=== PATIENT | female | born 1935 | race Caucasian/White ===

== ENCOUNTER 2016-09-08 20:50 | Inpatient (IN) | payer OTHER ==
[~2016-09-08] VITALS: Ht 147.3 cm; Wt 79.6 kg
[~2016-09-08 20:50] MED LIST: ATORVASTATIN CA20 MG PO; KEFLEX500 MG PO; LEVOTHYROXINE75 MCG PO; LISINOPRIL-HCT1 EAC3 PO; NAPROSYN250 MG PO; RALOXIFENE HCL60 MG PO; TYLENOL REGULA325 MG PO
[2016-09-08 21:56] LABS: EOSINOPHIL (%) 0.5 % (0-5); HEMATOCRIT 39.5 % (36.0-46.0); IMMATURE GRANULOCYTE (%) 0.2 % (0.0-0.7); INSTRUMENT ABS NEUTROPHIL CT 3.2 K/uL; LYMPHOCYTE COUNT 0.6 K/uL (1.0-2.8); MCH 29.1 PG (29.0-34.0); MCHC 30.4 G/DL (30.0-36.0); MCV 95.9 FL (83-99); MEAN PLAT.VOLUME 9.3 uM^3 (9.5-12.4); MONOCYTE (%) 12.1 % (3-12); MONOCYTE COUNT 0.5 K/uL (0-0.8); NEUTROPHIL (%) 72.6 % (45-76); NEUTROPHIL COUNT 3.2 K/uL (1.8-6.4); PLATELET COUNT 168 K/uL (156-360); RBC DIS.WIDTH-SD 56.9 % (39-53); RED BLOOD COUNT 4.12 M/uL (3.80-5.20); WHITE BLOOD COUNT 4.4 K/uL (4.1-10.2)
[2016-09-08 22:07] LABS: CHLORIDE 103 mEq/L (99-109); POTASSIUM 4.7 mEq/L (3.7-5.4); SODIUM 139 mEq/L (136-147)
[2016-09-08 22:09] LABS: GLUCOSE 174 mg/dL (70-99)
[2016-09-08 22:10] LABS: ANION GAP 9 MEQ/L (2-14)
[2016-09-08 22:11] LABS: TOTAL BILIRUBIN 0.3 mg/dL (0.0-1.0)
[2016-09-08 22:12] LABS: ALKALINE PHOSPHATASE 46 IU/L (3-129)
[2016-09-08 22:13] LABS: GFR ESTIMATE (CALCULATED) 42 mL/min/
[2016-09-08 22:14] LABS: UREA NITROGEN (BUN) 48 mg/dL (9-23)
[2016-09-08 22:18] LABS: TROP-I INTERPRETATION NEGATIVE; TROPONIN-I 0.01 ng/mL (0.0-0.30)
[2016-09-08] MEDS ORDERED: AUGMENTIN875 MG PO (22:46)
[2016-09-08] MEDS ORDERED: PROVENTIL,2.5 MG/3 M IH (22:46)
[2016-09-08] MEDS ORDERED: BUSPIRONE HCL10 MG PO (22:47)
[2016-09-08] MEDS ORDERED: DONEPEZIL HCL5 MG PO (22:47)
[2016-09-08] MEDS ORDERED: CALCIUM 500 +1 EACH PO (22:47)
[2016-09-08] MEDS ORDERED: SERTRALINE HCL50 MG PO (22:47)
[2016-09-08] MEDS ORDERED: LO-DOSE ASPIRIN81 M2 PO (22:47)
[2016-09-08 22:58] LABS: INFLUENZA A VIRAL ANTIGEN NEGATIVE; INFLUENZA B VIRAL ANTIGEN NEGATIVE
[2016-09-09 03:54] VITALS: BP 105/52
[2016-09-09 08:19] VITALS: BP 139/65
[2016-09-09 12:16] VITALS: BP 140/76
[2016-09-09 16:00] VITALS: BP 134/70
[2016-09-09 20:00] VITALS: BP 130/57
[2016-09-10] VITALS (8 sets, daily range): BP systolic 124–165; BP diastolic 58–92
[2016-09-10 07:03] LABS: EOSINOPHIL (%) 0.9 % (0-5); HEMATOCRIT 35.7 % (36.0-46.0); IMMATURE GRANULOCYTE (%) 0.7 % (0.0-0.7); INSTRUMENT ABS NEUTROPHIL CT 2.5 K/uL; LYMPHOCYTE COUNT 1.2 K/uL (1.0-2.8); MCH 28.3 PG (29.0-34.0); MCHC 29.7 G/DL (30.0-36.0); MCV 95.5 FL (83-99); MEAN PLAT.VOLUME 9.5 uM^3 (9.5-12.4); MONOCYTE (%) 12.5 % (3-12); MONOCYTE COUNT 0.5 K/uL (0-0.8); NEUTROPHIL (%) 58.1 % (45-76); NEUTROPHIL COUNT 2.5 K/uL (1.8-6.4); PLATELET COUNT 177 K/uL (156-360); RBC DIS.WIDTH-CV 16.5 % (11.8-14.6); RBC DIS.WIDTH-SD 58.4 % (39-53); RED BLOOD COUNT 3.74 M/uL (3.80-5.20); WHITE BLOOD COUNT 4.3 K/uL (4.1-10.2)
[2016-09-10 07:12] LABS: ANION GAP 5 MEQ/L (2-14); CHLORIDE 109 MEQ/L (99-109); GFR ESTIMATE (CALCULATED) > 59 mL/min/; POTASSIUM 4.8 MEQ/L (3.7-5.4); SAMPLE HEMOLYSIS CHECK 0; SAMPLE ICTERIC CHECK 0; SAMPLE LIPEMIA CHECK 0; SODIUM 141 MEQ/L (136-147); UREA NITROGEN (BUN) 29 mg/dL (9-23)
[2016-09-10 07:16] LABS: GLUCOSE 81 mg/dL (70-99)
[2016-09-11] VITALS: BP 132/74; BP 132/77
[2016-09-11 04:05] VITALS: BP 149/76
[2016-09-11 07:12] LABS: HEMATOCRIT 35.9 % (36.0-46.0); MCH 28.6 PG (29.0-34.0); MCHC 30.1 G/DL (30.0-36.0); MEAN PLAT.VOLUME 9.3 uM^3 (9.5-12.4); PLATELET COUNT 179 K/uL (156-360); RBC DIS.WIDTH-CV 16.5 % (11.8-14.6); RBC DIS.WIDTH-SD 58.4 % (39-53); RED BLOOD COUNT 3.78 M/uL (3.80-5.20); WHITE BLOOD COUNT 4.2 K/uL (4.1-10.2)
[2016-09-11 07:17] VITALS: BP 177/71
[2016-09-11 07:57] LABS: ANION GAP 4 MEQ/L (2-14); CHLORIDE 108 MEQ/L (99-109); GFR ESTIMATE (CALCULATED) > 59 mL/min/; GLUCOSE 79 mg/dL (70-99); POTASSIUM 4.8 MEQ/L (3.7-5.4); SAMPLE HEMOLYSIS CHECK 0; SAMPLE ICTERIC CHECK 0; SAMPLE LIPEMIA CHECK 0; SODIUM 140 MEQ/L (136-147); UREA NITROGEN (BUN) 24 mg/dL (9-23)
[2016-09-11 08:30] LABS: EOSINOPHIL (%) 1.2 % (0-5); EOSINOPHIL COUNT 0.1 K/uL (0-0.3); IMMATURE GRANULOCYTE (%) 0.2 % (0.0-0.7); INSTRUMENT ABS NEUTROPHIL CT 2.4 K/uL; LYMPHOCYTE COUNT 1.2 K/uL (1.0-2.8); MONOCYTE (%) 12.6 % (3-12); MONOCYTE COUNT 0.5 K/uL (0-0.8); NEUTROPHIL (%) 56.6 % (45-76); NEUTROPHIL COUNT 2.4 K/uL (1.8-6.4)
[2016-09-11 11:29] VITALS: BP 129/60
[2016-09-11 15:32] VITALS: BP 138/66
[2016-09-11 19:23] VITALS: BP 133/79
[2016-09-12 00:30] VITALS: BP 142/75
[2016-09-12 04:40] VITALS: BP 116/67
[2016-09-12 07:29] LABS: ANION GAP 5 MEQ/L (2-14); CHLORIDE 110 MEQ/L (99-109); GFR ESTIMATE (CALCULATED) > 59 mL/min/; GLUCOSE 80 mg/dL (70-99); POTASSIUM 5.1 MEQ/L (3.7-5.4); SAMPLE HEMOLYSIS CHECK 0; SAMPLE ICTERIC CHECK 0; SAMPLE LIPEMIA CHECK 0; SODIUM 141 MEQ/L (136-147); UREA NITROGEN (BUN) 24 mg/dL (9-23)
[2016-09-12 08:22] LABS: EOSINOPHIL (%) 1.3 % (0-5); EOSINOPHIL COUNT 0.1 K/uL (0-0.3); IMMATURE GRANULOCYTE (%) 0.6 % (0.0-0.7); INSTRUMENT ABS NEUTROPHIL CT 3.3 K/uL; LYMPHOCYTE COUNT 1.1 K/uL (1.0-2.8); MCH 28.4 PG (29.0-34.0); MCV 94.6 FL (83-99); MEAN PLAT.VOLUME 10.2 uM^3 (9.5-12.4); MONOCYTE (%) 12.2 % (3-12); MONOCYTE COUNT 0.6 K/uL (0-0.8); NEUTROPHIL (%) 63.6 % (45-76); NEUTROPHIL COUNT 3.3 K/uL (1.8-6.4); PLATELET COUNT 172 K/uL (156-360); RBC DIS.WIDTH-CV 16.3 % (11.8-14.6); RBC DIS.WIDTH-SD 56.4 % (39-53); WHITE BLOOD COUNT 5.3 K/uL (4.1-10.2)
[2016-09-12 09:01] VITALS: BP 118/57
[2016-09-12 12:33] VITALS: BP 118/65
[2016-09-12 16:58] VITALS: BP 145/70
[2016-09-12 20:46] VITALS: BP 137/60
[2016-09-13 00:59] VITALS: BP 134/61
[2016-09-13 04:40] VITALS: BP 130/56
[2016-09-13 06:09] LABS: EOSINOPHIL (%) 0 % (0-5); HEMATOCRIT 36.7 % (36.0-46.0); IMMATURE GRANULOCYTE (%) 0.5 % (0.0-0.7); INSTRUMENT ABS NEUTROPHIL CT 5.2 K/uL; LYMPHOCYTE COUNT 0.5 K/uL (1.0-2.8); MCH 28.7 PG (29.0-34.0); MCHC 30.5 G/DL (30.0-36.0); MCV 94.1 FL (83-99); MEAN PLAT.VOLUME 9.2 uM^3 (9.5-12.4); MONOCYTE (%) 1.5 % (3-12); MONOCYTE COUNT 0.1 K/uL (0-0.8); NEUTROPHIL (%) 89.9 % (45-76); NEUTROPHIL COUNT 5.2 K/uL (1.8-6.4); PLATELET COUNT 186 K/uL (156-360); RBC DIS.WIDTH-CV 16.1 % (11.8-14.6); RBC DIS.WIDTH-SD 55.9 % (39-53); WHITE BLOOD COUNT 5.8 K/uL (4.1-10.2)
[2016-09-13 06:57] LABS: ANION GAP 8 MEQ/L (2-14); CHLORIDE 107 MEQ/L (99-109); GFR ESTIMATE (CALCULATED) 57 mL/min/; POTASSIUM 5.2 MEQ/L (3.7-5.4); SAMPLE HEMOLYSIS CHECK 0; SAMPLE ICTERIC CHECK 0; SAMPLE LIPEMIA CHECK 0; SODIUM 140 MEQ/L (136-147); UREA NITROGEN (BUN) 25 mg/dL (9-23)
[2016-09-13 07:00] LABS: GLUCOSE 153 mg/dL (70-99)
[2016-09-13 07:48] VITALS: BP 130/65
[2016-09-13 11:42] VITALS: BP 135/79
[2016-09-13 15:48] VITALS: BP 130/75
[2016-09-13 20:00] VITALS: BP 129/61
[2016-09-14] VITALS: BP 140/65
[2016-09-14 04:00] VITALS: BP 149/72
[2016-09-14 07:18] LABS: EOSINOPHIL (%) 0 % (0-5); HEMATOCRIT 36.6 % (36.0-46.0); IMMATURE GRANULOCYTE (%) 0.5 % (0.0-0.7); IMMATURE GRANULOCYTE COUNT 0.1 K/uL; INSTRUMENT ABS NEUTROPHIL CT 8.5 K/uL; LYMPHOCYTE COUNT 0.5 K/uL (1.0-2.8); MCH 28.9 PG (29.0-34.0); MCHC 30.6 G/DL (30.0-36.0); MCV 94.3 FL (83-99); MEAN PLAT.VOLUME 9.4 uM^3 (9.5-12.4); MONOCYTE (%) 4.6 % (3-12); MONOCYTE COUNT 0.4 K/uL (0-0.8); NEUTROPHIL (%) 89.5 % (45-76); NEUTROPHIL COUNT 8.5 K/uL (1.8-6.4); PLATELET COUNT 209 K/uL (156-360); RBC DIS.WIDTH-CV 16.2 % (11.8-14.6); RBC DIS.WIDTH-SD 56.3 % (39-53); RED BLOOD COUNT 3.88 M/uL (3.80-5.20)
[2016-09-14 07:19] LABS: WHITE BLOOD COUNT 9.5 K/uL (4.1-10.2)
[2016-09-14 07:23] LABS: ANION GAP 8 MEQ/L (2-14); CHLORIDE 108 MEQ/L (99-109); GFR ESTIMATE (CALCULATED) > 59 mL/min/; GLUCOSE 159 mg/dL (70-99); SAMPLE HEMOLYSIS CHECK 0; SAMPLE ICTERIC CHECK 0; SAMPLE LIPEMIA CHECK 0; SODIUM 140 MEQ/L (136-147); UREA NITROGEN (BUN) 35 mg/dL (9-23)
[2016-09-14 08:28] VITALS: BP 143/69
[2016-09-14 13:16] VITALS: BP 142/84
[2016-09-14 17:16] VITALS: BP 168/82
[2016-09-14 19:50] VITALS: BP 135/62
[2016-09-15 00:05] VITALS: BP 127/57
[2016-09-15 04:10] VITALS: BP 139/77
[2016-09-15 08:08] VITALS: BP 136/75
[2016-09-15 11:53] VITALS: BP 170/72
[2016-09-15 15:45] VITALS: BP 154/67
[2016-09-15 19:54] VITALS: BP 177/78
[2016-09-16 00:59] VITALS: BP 139/75
[2016-09-16 04:55] VITALS: BP 172/72
[2016-09-16 08:35] VITALS: BP 161/73
[2016-09-16 12:14] VITALS: BP 126/61
[2016-09-16 15:50] VITALS: BP 126/60
[2016-09-16 23:46] VITALS: BP 169/77
[2016-09-17 06:16] LABS: EOSINOPHIL (%) 0 % (0-5); IMMATURE GRANULOCYTE (%) 2.4 % (0.0-0.7); IMMATURE GRANULOCYTE COUNT 0.2 K/uL; INSTRUMENT ABS NEUTROPHIL CT 6.9 K/uL; LYMPHOCYTE COUNT 0.7 K/uL (1.0-2.8); MCH 28.8 PG (29.0-34.0); MCHC 31.4 G/DL (30.0-36.0); MCV 91.6 FL (83-99); MEAN PLAT.VOLUME 9.7 uM^3 (9.5-12.4); MONOCYTE (%) 12.5 % (3-12); MONOCYTE COUNT 1.1 K/uL (0-0.8); NEUTROPHIL (%) 77.1 % (45-76); NEUTROPHIL COUNT 6.9 K/uL (1.8-6.4); NRBC (%) 0.2 /100 WBC (0-0); PLATELET COUNT 240 K/uL (156-360); RBC DIS.WIDTH-CV 16.2 % (11.8-14.6); RBC DIS.WIDTH-SD 54.8 % (39-53); RED BLOOD COUNT 3.93 M/uL (3.80-5.20); WHITE BLOOD COUNT 8.9 K/uL (4.1-10.2)
[2016-09-17 06:27] LABS: ANION GAP 6 MEQ/L (2-14); CHLORIDE 104 MEQ/L (99-109); GFR ESTIMATE (CALCULATED) 57 mL/min/; GLUCOSE 102 mg/dL (70-99); POTASSIUM 5.5 MEQ/L (3.7-5.4); SAMPLE HEMOLYSIS CHECK 0; SAMPLE ICTERIC CHECK 0; SAMPLE LIPEMIA CHECK 0; SODIUM 137 MEQ/L (136-147); UREA NITROGEN (BUN) 41 mg/dL (9-23)
[2016-09-17 07:42] VITALS: BP 148/90
[2016-09-17 18:03] VITALS: BP 145/70
[2016-09-17 23:07] VITALS: BP 128/60
[2016-09-18 07:00] LABS: EOSINOPHIL (%) 0 % (0-5); HEMATOCRIT 36.4 % (36.0-46.0); IMMATURE GRANULOCYTE (%) 3.6 % (0.0-0.7); IMMATURE GRANULOCYTE COUNT 0.3 K/uL; INSTRUMENT ABS NEUTROPHIL CT 6.8 K/uL; LYMPHOCYTE COUNT 0.8 K/uL (1.0-2.8); MCH 28.7 PG (29.0-34.0); MCV 92.4 FL (83-99); MEAN PLAT.VOLUME 9.6 uM^3 (9.5-12.4); MONOCYTE (%) 11.1 % (3-12); NEUTROPHIL (%) 76.3 % (45-76); NEUTROPHIL COUNT 6.8 K/uL (1.8-6.4); PLATELET COUNT 222 K/uL (156-360); RBC DIS.WIDTH-CV 16.5 % (11.8-14.6); RBC DIS.WIDTH-SD 55.7 % (39-53); RED BLOOD COUNT 3.94 M/uL (3.80-5.20)
[2016-09-18 07:30] LABS: ANION GAP 5 MEQ/L (2-14); CHLORIDE 106 MEQ/L (99-109); GFR ESTIMATE (CALCULATED) > 59 mL/min/; GLUCOSE 89 mg/dL (70-99); POTASSIUM 5.4 MEQ/L (3.7-5.4); SAMPLE HEMOLYSIS CHECK 0; SAMPLE ICTERIC CHECK 0; SAMPLE LIPEMIA CHECK 0; SODIUM 139 MEQ/L (136-147); UREA NITROGEN (BUN) 37 mg/dL (9-23)
[2016-09-18 10:08] VITALS: BP 120/58
[2016-09-18 17:26] VITALS: BP 142/74
[2016-09-18 23:16] VITALS: BP 128/63
[2016-09-19 06:42] LABS: ANION GAP 5 MEQ/L (2-14); CHLORIDE 107 MEQ/L (99-109); GFR ESTIMATE (CALCULATED) > 59 mL/min/; GLUCOSE 87 mg/dL (70-99); POTASSIUM 5.4 MEQ/L (3.7-5.4); SAMPLE HEMOLYSIS CHECK 0; SAMPLE ICTERIC CHECK 0; SAMPLE LIPEMIA CHECK 0; SODIUM 139 MEQ/L (136-147); UREA NITROGEN (BUN) 33 mg/dL (9-23)
[2016-09-19 07:53] VITALS: BP 154/70
[2016-09-19] MEDS ORDERED: LEVOFLOXACIN750 MG PO (13:00)
[2016-09-19] MEDS ORDERED: LOVENOX30 MG/0.3 SC (13:00)
[2016-09-19] MEDS ORDERED: ADVAIR HFA120 INHALA IH (13:01)
[2016-09-19] MEDS ORDERED: PREDNISONE10 MG PO (13:02)
[2016-09-19] MEDS ORDERED: LISINOPRIL10 MG PO (13:02)
== END 2016-09-19 16:57 | DRG 871 ==
LOC: EME 20:50 → 4SOUTH 23:05 → EDOF 23:05 → 4SOUTH 09-09 00:43 → 5EAST 09-16 16:57
PROVIDERS: Emergency Medicine; Family Medicine
DX: R78.81 Bacteremia (principal); J69.0 Pneumonitis due to inhalation of food and vomit; E87.2 Acidosis; J20.9 Acute bronchitis, unspecified; I95.9 Hypotension, unspecified; I10 Essential (primary) hypertension; F03.90 Unspecified dementia, unspecified severity, without behavioral disturbance, psychotic disturbance, mood disturbance, and anxiety; F70 Mild intellectual disabilities; D64.9 Anemia, unspecified; R09.02 Hypoxemia; M19.90 Unspecified osteoarthritis, unspecified site; E66.9 Obesity, unspecified; E78.5 Hyperlipidemia, unspecified; E03.9 Hypothyroidism, unspecified; N28.9 Disorder of kidney and ureter, unspecified
CPT/HCPCS: 71010; 74230; 80048; 80053; 82607; 82746; 83605; 83880; 84484; 85025; 87040; 87502; 92610 GN; 92611 GN; 93005; 94640; 94640 76; 94760; 94799; 97530 GP; 99202; 99281; 99285; J0456; J0696; J1100; J1650; J2930; J3370; J7030; J7050; J7512; J7644